=== PATIENT | female | born 1955 | race Two or more races ===

== ENCOUNTER → 2020-02-22 | Day surgery (SDC) | payer OTHER ==
[2020-02-22] VITALS (14 sets, daily range): BP systolic 137–155; BP diastolic 67–88
[~2020-02-22] VITALS: Ht 160 cm; Wt 75.7 kg
[~2020-02-22] MED LIST: Atropine Sulfate 0.4mg/ml inj IVP PRN; BENICAR HCT 201 EACH ORAL; BENICAR20 MG ORAL; CARAFATE1 G1 ORAL; CYCLOBENZAPRINE10 MG ORAL; D5 1/2NS 1,000 ML IV SCH; DiphenhydrAMINE 50mg/ml Inj IVP PRN; Duramorph PF 5mg/10ml amp ONE; EPINEPHrine 1mg/1ml Amp ONE; HYDROcodone/Acetamin 5/325 tab ORAL PRN; HYDROcodone/Acetamin 7.5/325 tab ORAL PRN; HYDROmorphone 1mg/ml Carpuject SUBQ PRN; Hydromorphone 0.5mg/0.5ml inj IVP PRN; Kenalog-40 1ml Vial ONE; Ketorolac 30mg Inj IV PRN; Ketorolac 30mg Inj ONE; LEVOTHYROXINE75 MCG ORAL; LIPITOR20 MG ORAL; LORazepam Inj 2mg/ml 1ml IV PRN; LR 1000ml 1,000 ML IVLG SCH; LR 1000ml ONE; Labetalol 5mg/ml 20ml vial IV PRN; Lidocaine 1% MPF 10mg/ml 5ml ONE; MONTELUKAST SOD10 MG ORAL; Meperidine 25mg/0.5ml Inj (FOR RIGORS ONLY) IV PRN; Metoclopramide 10mg/2ml Inj IVP PRN; Metoclopramide 10mg/2ml Inj ONE; Midazolam 2mg/2ml Inj IVP PRN; NS Irrig 4000ml IRRIG ONE; OMEGA-31000 M1 PO; Ropivacaine 5mg/ml Vial 20ml INJ ONE; SYNTHROID75 MCG ORAL; Sterile Water Irrig 1000ml IRRIG ONE; TERBINAFINE HC250 MG PO; Tylenol #3 tab (300mg/30mg) ORAL PRN; VITAMIN D PO; Vit D PO; ceFAZolin 1gm IVPB IVPB ONE; celeBREX 200mg Cap **SURGERY PATIENTS ONLY ORAL ONE; fentaNYL 100 mcg/2 mL IV PRN; oxyCODONE HCL/Acetaminophen 5/325mg ORAL PRN; oxyCONTIN 20mg tab ORAL ONE
--- NOTE | 2020-02-22 07:42 | Operative Note - PDOC ---
Operative Note Operative Note Pre-op Diagnosis: right shoulder impingement Procedure: see op report Post-op Diagnosis: same as pre-op plus Operative Findings: consistent w/pre-op dx studies Anesthesia: regional Specimen: none Complications: none Condition: stable Estimated Blood Loss: none Implant(s) used?: No Jamin Heller MD Feb 22, 2020 07:42
--- NOTE | 2020-02-22 07:42 | Pre-Procedure Note/Attestation ---
Pre-Procedure Note/Attestation Complete Prior to Procedure Planned Procedure: right Procedure Narrative: shoulder arthroscopy, sad, possible rc repair Indications for Procedure Pre-Operative Diagnosis: right shoulder impingement Attestation I attest that I discussed the nature of the procedure; its benefits; risks and complications; and alternatives (and the risks and benefits of such alternatives ), prior to the procedure, with the patient (or the patient's legal workforce services representative). I attest that, if there was a reasonable possibility of needing a blood transfusion, the patient (or the patient's legal workforce services representative) was given the [facility] standardized written summary, pursuant to the [place] Blood Safety Act ([place] Health and Safety Code # 1645, as amended). I attest that I re-evaluated the patient just prior to the surgery and that there has been no change in the patient's H&P, except as documented below: Jamin Heller MD Feb 22, 2020 07:42
--- NOTE | 2020-02-22 09:47 | Anethesia Preoperative Eval ---
Anesthesia Pre-op PMH/ROS General Date of Evaluation: Feb 22, 2020 Time of Evaluation: 08:49 Anesthesiologist: Tasha ASA Score: ASA 3 Mallampati Score Class I : Soft palate, uvula, fauces, pillars visible Class II: Soft palate, uvula, fauces visible Class III: Soft palate, base of uvula visible Class IV: Only hard plate visible Mallampati Classification: Class II Surgeon: Arron Diagnosis: R Shoulder Pain Surgical Procedure: R Shoulder Athroscopy Anesthesia History: none Family History: no anesthesia problems Allergies: Coded Allergies: No Known Allergies (Unverified , 02/20/20) Medications: see eMAR Patient NPO?: Yes Past Medical History Cardiovascular: Reports: HTN, other - HL Pulmonary: Reports: asthma Gastrointestinal/Genitourinary: Reports: GERD Endocrine: Reports: hypothyroidism - BMI 31 Other: obesity Anesthesia Pre-op Phys. Exam Physician Exam Last Vital Signs Date Time Temp Pulse Resp B/P (MAP) Pulse Ox O2 Delivery O2 Flow Rate FiO2 02/22/20 08:02 Room Air 02/22/20 07:54 97.5 60 18 150/88 100 Constitutional: NAD Neurologic: CN 2-12 intact Cardiovascular: RRR Respiratory: CTA Gastrointestinal: S/NT/ND Airway Exam Mallampati Score: Class II MO: full ROM: full Teeth: missing, intact Anesthesia Pre-op A/P Risk Assessment & Plan Assessment: ASA 3 Plan: GA, SED, Supraclavicular Block Status Change Before Surgery: No Pre-Antibiotics Dru Gram Ancef IV Given Within 1 Hr of Incision: Yes Time Given: 09:26 Kevin Cordova MD Feb 22, 2020 09:47
--- NOTE | 2020-02-22 09:54 | Immediate Post-Op Evaluation ---
Immediate Post-Op Evalulation Immediate Post-Op Evalulation Procedure: R Shoulder Athroscopy Date of Evaluation: Feb 22, 2020 Time of Evaluation: 11:09 IV Fluids: 1000 LR Blood Products: 0 Estimated Blood Loss: 10 Urinary Output: 0 Blood Pressure Systolic: 143 Blood Pressure Diastolic: 69 Pulse Rate: 49 Respiratory Rate: 16 O2 Sat by Pulse Oximetry: 100 Temperature (Fahrenheit): 97.7 Pain Score (1-10): 1 Nausea: No Vomiting: No Complications 0 Patient Status: awake, reacts, patent, none Hydration Status: adequate Dru Gram Ancef IV Given Within 1 Hr of Incision: Yes Time Given: 09:26 Kevin Cordova MD Feb 22, 2020 09:54
--- NOTE | 2020-02-22 09:55 | 48 Hour Post Anesthesia Eval ---
Post Anesthesia Evaluation Procedure: R Shoulder Athroscopy Date of Evaluation: Feb 22, 2020 Time of Evaluation: 13:13 Blood Pressure Systolic: 143 0: 67 Pulse Rate: 56 Respiratory Rate: 18 Temperature (Fahrenheit): 98 O2 Sat by Pulse Oximetry: 100 Airway: patent Nausea: No Vomiting: No Pain Intensity: 0 Hydration Status: adequate Cardiopulmonary Status: Stable Mental Status/LOC: patient returned to baseline Follow-up Care/Observations: 0 Post-Anesthesia Complications: 0 Follow-up care needed: ready to discharge Kevin Cordova MD Feb 22, 2020 09:55
--- NOTE | 2020-02-22 14:15 | Operative Note - Dictated ---
DATE OF OPERATION: 02/22/2020 PREOPERATIVE DIAGNOSIS: Right shoulder full-thickness rotator cuff tear. POSTOPERATIVE DIAGNOSES: 1. Right shoulder full-thickness rotator cuff tear extending into the footprint of infraspinatus with detachment of supraspinatus tendon. 2. Long head of biceps tendon tear. 3. Superior labral tear. 4. Impingement/bursitis. PROCEDURES: 1. Right shoulder arthroscopy and extensive intra-articular debridement. 2. Superior labral debridement. 3. Arthroscopic rotator cuff repair. 4. Subacromial decompression bursectomy. SURGEON: Jamin Heller MD. ANESTHESIA: Interscalene with general. INDICATION FOR PROCEDURE: The patient is a pleasant female who has had progressive right shoulder pain. She had an MRI, which showed a full-thickness rotator cuff tear, tendinosis of biceps tendon. The patient failed conservative treatment and elected to undergo right shoulder arthroscopy and rotator cuff repair. Risks, limitations, expectations, and complications were discussed in detail. All questions addressed. DESCRIPTION OF PROCEDURE: After informed consent was obtained, the patient was brought to the operating room. The patient was placed under interscalene general anesthesia. Right shoulder was prepped and draped in a sterile manner. Time-out was performed. Inferolateral stab incision was then made. Trocar was introduced into the glenohumeral joint. There was fraying of the superior labrum extending possibly to the biceps tendon. The subscapularis was intact. No chondral damage. Anterior labrum was intact. The footprint of the supraspinatus was completely detached extending into the infraspinatus. Shaver was then placed into the shoulder. Debridement of the surface of the labrum was debrided down to stable rim of tissue including some portion of the remnants of the biceps tendon. The soft tissue lateral to the articular surface was debrided to a nice bleeding surface. Camera was repositioned in the subacromial space. Complete bursectomy was performed. The undersurface of the acromion was identified. Acromioplasty was started from lateral to medial and completed from posterior to anterior. Once that was done, two medial row anchors were placed along with mattress sutures. One lateral row anchor was placed. Rotator cuff moved as a unit. Footprint was recreated. Instruments removed. Portal sites were closed with 3-0 Monocryl suture. Steri-Strips and a sterile dressing were applied. ESTIMATED BLOOD LOSS: None. COMPLICATIONS: None. SPECIMENS: None. IMPLANTS: Include three Biomet rotator cuff anchors. Jamin Heller M.D. DR: SUE JOB#: [id number] CC:
== END | disposition home or self-care (01) ==
LOC: SUR 07:07
DX: M75.121 Complete rotator cuff tear or rupture of right shoulder, not specified as traumatic (principal); S46.111A Strain of muscle, fascia and tendon of long head of biceps, right arm, initial encounter; S43.431A Superior glenoid labrum lesion of right shoulder, initial encounter; M75.41 Impingement syndrome of right shoulder; M71.9 Bursopathy, unspecified; X58.XXXA Exposure to other specified factors, initial encounter; Y92.9 Unspecified place or not applicable; I10 Essential (primary) hypertension; K21.9 Gastro-esophageal reflux disease without esophagitis; E03.9 Hypothyroidism, unspecified; E66.9 Obesity, unspecified; Z68.29 Body mass index [BMI] 29.0-29.9, adult
CPT/HCPCS: 29823; 29826; 29827; 94003; C1713; J0171; J0690; J1100; J2250; J2405; J2704; J2765; J2795; J7120; 94150